=== PATIENT | female | born 1985 | race Caucasian/White ===

== ENCOUNTER 2020-06-29 15:35 | Emergency (ER) | payer SELFPAY ==
[~2020-06-29] VITALS: Ht 170.2 cm; Wt 62.1 kg
[2020-06-29 15:43] VITALS: BP 145/89
[2020-06-29] MEDS ORDERED: DIPH,PERTUSS(ACELL),TET VAC/PF 0.5 ML IM-VACC ONE ×2 (16:00→16:16)
[2020-06-29] MEDS ORDERED: LIDOCAINE 1%-EPI 1:100K, 20ML SQ ONE (16:00)
[2020-06-29] MEDS ORDERED: LIDOCAINE-MPF 1%, 5ML ONE ×2 (16:16→16:32)
[2020-06-29] MEDS ORDERED: LAMO200T4 PO (16:28)
--- NOTE | 2020-06-29 18:44 | NUR ---
Patient given discharge instructions and they have confirmed that they understand the instructions. Patient ambulatory with steady gait.
== END 2020-06-29 18:45 | disposition home or self-care (01) ==
LOC: ED 18:10
DX: S91.321A Laceration with foreign body, right foot, initial encounter (principal); S91.341A Puncture wound with foreign body, right foot, initial encounter; X58.XXXA Exposure to other specified factors, initial encounter; Y93.89 Activity, other specified; Y92.098 Other place in other non-institutional residence as the place of occurrence of the external cause; Y99.8 Other external cause status
CPT/HCPCS: 12041; 90471; 90715; 96372; 99284